=== PATIENT | female | born 1970 | race Caucasian/White ===

== ENCOUNTER 2017-12-03 10:38 | Outpatient (CLI) | payer OTHER ==
[~2017-12-03] VITALS: Ht 162.6 cm; Wt 113.6 kg
--- NOTE | ~2017-12-03 | HEMODYNAMI ---
PATIENT:SHREYA DEL ANGEL MEDICAL RECORD: [id number] : 66 LOCATION:[facility] ADMISSION DATE: 12/03/17 Generatedon:12/03/201713:23 Patient name: SHREYA DEL ANGEL Patient #: [id number] SSN: : 1970 Date of study: 12/03/2017 Page: Of Hemodynamic Procedure Report Patient Data Patient Demographics Procedure consent was obtained First Name: SHREYA Gender: Female Last Name: MER : 1970 Middle Initial: ROBBIN Age: 47 year(s) Patient #: [id number] Race: Unknown Additional ID: [id number] Contact details [address]: [address] [place] [address] State: [place] City: [place] Zip code: [address] Admission Admission Data Admission Date: 12/03/2017 Admission Time: 10:38 Arrival Date: 12/03/2017 Arrival Time: 13:00 Admit Source: Other Insurance Payor: Private health insurance Weight (lbs.): 249 Weight (kg.): 112.94 Lab Results Lab Result Date: 12/03/2017 Lab Result Time: 0:00 Biochemistry Name Units Result Min Max BUN mg/dl 9 --(*---)-- 7 18 Creatinine mg/dl 0.7 --(*---)-- 0.6 1.3 CBC Name Units Result Min Max Hemoglobin g/dl 15.6 --(--*-)-- 13.5 17.5 Procedure Procedure Types Cath Procedure Diagnostic Procedure Sedation Charges [facility] w/Coronaries Procedure Description Procedure Date Procedure Date: 12/03/2017 Procedure Start Time: 13:11 Procedure End Time: 13:20 Procedure Staff Name Function Marek Walker MD Performing Physician Lauryn Boogie RT Monitor Leslie Rodríguez RT Scrub Darin Matute RN Nurse Procedure Data Cath Procedure Fluoroscopy Diagnostic fluoroscopy Total fluoroscopy Time: 2.5 time: 2.5 min min Diagnostic fluoroscopy Total fluoroscopy dose: 415 dose: 415 mGy mGy Contrast Material Contrast Material Type Amount (ml) Isovue 300 45 Entry Location Entry Primary Successful Side Size Upsize Upsize Entry Closure Vaughn ccessful Closure Location (Fr) 1 (Fr) 2 (Fr) Remarks Device Remarks Radial Right 6 Fr Mechanical artery Short Compression Estimated blood loss: 5 ml Diagnostic catheters Device Type Used For End Catheter Placement DIAGNOSTIC [place] 110cm 5 Multi-vessel Fr catheter ([id number]) Angiography DIAGNOSTIC Pigtail 5Fr LV Angiography catheter ([id number]) Procedure Complications No complications Procedure Medications Medication Administration Route Dosage 0.9% NaCl I.V. ml/hr Oxygen NC 2 l/min Heparin Flush Bag added to field 2 bags (1000units/500ml NS) Lidocaine 2% added to field 20 Radial Cocktail added to field 1 syringe (Verapomil 2mg/Nitro 400mcg/Heparin 1500units) Versed I.V. 1 mg Fentanyl I.V. 50 mcg Radial Cocktail I.A. 1 syringe (Verapomil 2mg/Nitro 400mcg/Heparin 1500units) Versed I.V. 1 mg Hemodynamics Rest HGB: 15.6 (g/dl) Heart Rate: 72 (bpm) Pressure Samples Time Site Value (mmHg) Purpose Heart Use Rate(bpm) 13:17 LV 121/15,19 Snapshot 66 Gradients Valve Time Site Site Mean SEP/DFP Peak To Heart Use 1 2 (mmHg) (sec/min) Peak Rate (mmHg) (bpm) Aortic 13:18 LV AO 74 Snapshots Pre Cath Intra NCS Post Cath Vital Signs Time Heart Resp SPO2 etCO2 NIBP Rhythm Pain Sedation Rate (ipm) (%) (mmHg) (mmHg) Status Level (bpm) 12:58:39 83 33 97 28.6 116/78(99) NSR 0 (11) 10(A) , No pain 13:02:59 119 34 97 29.4 110/71(91) NSR 0 (11) 10(A) , No pain 13:07:15 74 27 97 19.6 105/72(90) NSR 0 (11) 10(A) , No pain 13:11:31 74 27 96 15.8 104/68(90) NSR 0 (11) 10(A) , No pain 13:15:47 79 28 92 27.9 100/68(81) NSR 0 (11) 10(A) , No pain 13:20:03 76 26 94 24.8 106/64(82) NSR 0 (11) 10(A) , No pain Medications Time Medication Route Dose Verified Delivered Reason Notes Effectiveness by by 13:02:17 0.9% NaCl I.V. ml/hr Darin Darin Per Juju Matute physician RN RN 13:02:28 Oxygen NC 2 l/min Darin Darin Per Juju Matute physician RN RN 13:02:40 Heparin Flush added 2 bags Darin Darin used for Bag to Lorigan Juju procedure (1000units/500ml field RN RN NS) 13:02:52 Lidocaine 2% added 20ml Darin Darin for local to vial Lorigan Korinigan anesthetic field RN RN 13:03:04 Radial Cocktail added 1 Darin Darin used for (Verapomil to syringe Lorigan Lorigan procedure 2mg/Nitro field RN RN 400mcg/Heparin 1500units) 13:11:12 Versed I.V. 1 mg Darin Darin for sedation Juju Matute RN RN 13:11:20 Fentanyl I.V. 50 mcg Darin Darin for sedation Juju Matute RN RN 13:13:12 Radial Cocktail I.A. 1 Darin Marek for (Verapomil syringe Lorigan Denise vasodilation 2mg/Nitro FATOU GUILLAUME 400mcg/Heparin 1500units) 13:16:46 Versed I.V. 1 mg Darin Darin for sedation Juju Matute RN pizza cook Log Time Note 12:02:55 Patient Weight : 249 lbs 12:07:31 Lab Result : Hemoglobin 15.6 g/dl 12:07:31 Lab Result : Creatinine 0.7 mg/dl 12:07:31 Lab Result : BUN 9 mg/dl 12:42:38 Leslie URBINA(R) sent for patient. Start room use. 12:42:39 Time tracking: Regular hours 12:42:43 Plan of Care:Hemodynamics will remain stable., Cardiac rhythm will remain stable., Comfort level will be maintained., Respiratory function will remain adequate., Patient/ family verbilizes understanding of procedure., Procedure tolerated without complication., Recovers from procedure without complications.. 12:44:09 Admit Source: Other 12:44:40 Insurance Payor : Private health insurance 12:44:45 Arrival Date: 12/03/2017 1:00:00 PM 12:57:21 Patient received from Pre/Post Procedure Room to CCL 2 Alert and oriented. Tansferred to table in Supine position. 12:57:22 Warm blankets applied, and jefferson hugger turned on for patient comfort. 12:57:23 Correct patient and procedure confirmed by team. 12:57:24 Signed procedure consent form obtained from patient. 12:57:25 ECG and BP/O2 sat monitors applied to patient. 12:57:26 Vital chart was started 12:57:28 Baseline sample Acquired. 12:57:32 Rhythm: sinus rhythm 12:57:34 Full Disclosure recording started 12:57:48 H&P Date Dictated: 11/06/2017 Within 30 days and on chart., H&P Addendum completed by physician on day of procedure. (MUST COMPLETE FOR ALL OUTPATIENTS). 12:58:19 Pre-procedure instructions explained to patient. 12:58:19 Pre-op teaching completed and patient verbalized understanding. 12:58:21 Family in waiting room. 12:58:23 Patient NPO since Midnight. 12:58:25 Is the patient allergic to Iodine/contrast media? No. 12:58:26 Was the patient premedicated? No 12:58:27 Is patient on blood thinner?No 12:58:28 Patient diabetic? No. 12:58:31 Previous problem with sedation/anesthesia? No ? 12:58:32 Snore? Yes 12:58:33 Sleep apnea? No 12:58:34 Deviated septum? No 12:58:35 Opens mouth fully? Yes 12:58:36 Sticks out tongue? Yes 12:58:38 Airway obstruction? No ? 12:58:43 Dentures? Yes out 12:58:47 Pre procedure: right dorsailis pedis pulse 1+ Palpable, but thready & weak; easily obliterated 12:58:50 Pre procedure: left dorsailis pedis pulse 1+ Palpable, but thready & weak; easily obliterated 12:58:52 Patient pain scale 0/10 ?. 12:58:57 IV patent on arrival in left forearm with 0.9% NaCl at O. 13:00:10 Lab results completed and on chart. 13:00:14 Right Radial & Right Groin area was prepped with chlora-prep and draped in sterile fashion 13:00:14 Alarms reviewed by R. N. 13:00:15 Sharps counted by scrub and verified by R.N. 13:02:17 0.9% NaCl ml/hr I.V. was administered by Darin Matute RN; Per physician; 13:02:28 Oxygen 2 l/min NC was administered by Darin Matute RN; Per physician; 13:02:40 Heparin Flush Bag (1000units/500ml NS) 2 bags added to field was administered by Darin Matute RN; used for procedure; 13:02:52 Lidocaine 2% 20ml vial added to field was administered by Darin Matute RN; for local anesthetic; 13:03:04 Radial Cocktail (Verapomil 2mg/Nitro 400mcg/Heparin 1500units) 1 syringe added to field was administered by Darin Matute RN; used for procedure; 13:04:37 Physician arrived 13:04:38 --------ALL STOP TIME OUT------ 13:04:38 Final Timeout: patient, procedure, and site verified with staff and physician. All members of the team are in agreement. 13:04:40 Right Radial & Right Groin site verified by team. 13:04:42 Physical assessment completed. ASA score P 2 - A patient with mild systemic disease as per Marek Walker MD. 13:04:47 Sedation plan: IV Moderate Sedation Medication:Versed, Fentanyl 13:04:51 Use device set Radial Dx or PCI 13:04:52 ACIST Syringe (91518) opened to sterile field. 13:04:52 Medline Cath Pack ([id number]) opened to sterile field. 13:04:53 Bag Decanter (2002S) opened to sterile field. 13:04:53 SHEATH 6FR Slender ([id number]) opened to sterile field. 13:04:54 DIAGNOSTIC WIRE .035 260cm J wire (844762) opened to sterile field. 13:04:54 ACIST Hand Control (67733) opened to sterile field. 13:04:55 ACIST Manifold (12144) opened to sterile field. 13:04:56 Tegaderm 4 x 4 (1626W) opened to sterile field. 13:04:58 MBrace Wrist Support ([id number]) opened to sterile field. 13:10:53 Procedure started. 13:10:54 Zero performed for pressure channel P1 13:11:12 Versed 1 mg I.V. was administered by Darin Matute RN; for sedation; 13:11:17 Local anesthetic to right radial artery with Lidocaine 2% by Marek Walker MD.INITIAL ACCESS ONLY 13:11:20 Fentanyl 50 mcg I.V. was administered by Darin Matute RN; for sedation; 13:11:32 A 6 Fr Short sheath was inserted into the Right Radial artery 13:13:09 A DIAGNOSTIC [place] 110cm 5 Fr catheter (905413) was advanced over the wire and used for Multi-vessel Angiography. 13:13:12 Radial Cocktail (Verapomil 2mg/Nitro 400mcg/Heparin 1500units) 1 syringe I.A. was administered by Marek Walker MD; for vasodilation; 13:15:42 LCA angiography performed. 13:15:45 Injector settings: Ml/sec: 3, Volume: 6, 13:16:46 Versed 1 mg I.V. was administered by Darin Matute RN; for sedation; 13:16:46 RCA angiography performed. 13:16:48 Injector settings: Ml/sec: 3, Volume: 6, 13:16:50 Catheter removed. 13:17:03 A DIAGNOSTIC Pigtail 5Fr catheter ([id number]) was advanced over the wire and used for LV Angiography. 13:17:50 LV hemodynamics recorded. 13:17:51 LV gram done using WIGGINS 13:17:53 Injector settings: Ml/sec: 5, Volume: 15, 13:18:20 EF : 60 % 13:18:22 Catheter removed. 13:18:40 TR BAND Large ([id number]) opened to sterile field. 13:18:55 Sheath removed intact; hemostasis achieved with Mechanical Compression to the Right Radial artery. 13:18:57 Procedure ended.(Physican Out) 13:19:05 Fluoroscopy time 02.50 minutes. 13:19:09 Fluoroscopy dose: 415 mGy 13:19:09 Flurop Dose total: 415 13:19:15 Contrast amount:Isovue 300 45ml. 13:19:16 Sharps counted by scrub and verified by R.N. 13:19:54 Insertion/operative site no bleeding no hematoma. 13:20:01 Post right radial artery:stable 13:20:02 Post Procedure Pulses reassessed and unchanged 13:20:05 Post procedure rhythm: unchanged. 13:20:07 Estimated blood loss: 5 ml 13:20:09 Post procedure instruction explained to patient.Patient verbalizes understanding. 13:20:09 Patient needs reinforcement of post procedure teaching. 13:20:24 Procedure type changed to Cath procedure, Diagnostic procedure, Sedation Charges, LHC, LHC w/Coronaries 13:20:34 Procedure and supply charges have been captured, reviewed, submitted and are correct. 13:20:40 Procedure Complication : No complications 13:20:42 Vital chart was stopped 13:20:42 See physician's report for complete and final results. 13:20:48 Report given to Pre/Post Procedure Room. 13:20:51 Patient transfered to Pre/Post Procedure Room with Stretcher. 13:20:54 TR band inflated with 10cc of air. 13:20:58 Procedure ended. 13:20:58 Full Disclosure recording stopped 13:21:02 End room use (Document Last) Device Usage Item Name Manufacture Quantity Catalog Hospital Part Current Minima l Lot# / Number Charge Number Stock Stock Serial# Code ACIST Acist 1 19635 264794 333794 714653 20 Syringe Medical (20822) Systems Inc Medline Cath Cardinal 1 [id number] 888352 19074 262916 5 Pack Health ([id number]) Bag Decanter Microtek 1 2001S 953423 77094 725407 5 (2001S) Medical Inc. SHEATH 6FR Terumo 1 [id number] 236195 463180 464422 40 Slender ([id number]) DIAGNOSTIC [facility] [place] 1 161027 310093 135040 478201 30 WIRE .035 260cm J wire (979561) ACIST Hand Acist 1 12086 732633 782871 298457 5 Control Medical (09528) Systems Inc ACIST Acist 1 27278 394283 927658 679037 5 Manifold Medical (73588) Systems Inc Tegaderm 4 x 3M 1 1626W 663676 279932 480489 5 4 (1626W) MBrace Wrist Advanced 1 140-0250-00 122061 37909 838754 5 Support Vascular ([id number]) Dynamics DIAGNOSTIC Terumo 1 40-5013 554247 776494 835077 5 [place] 110cm 5 Fr catheter (532203) DIAGNOSTIC Cardinal 1 [id number] 680764 352756 181324 5 Pigtail 5Fr Health catheter (118983Z) TR BAND Terumo 1 HPQ08-VWG 013566 194442 760800 40 Large ([id number]) Signature Audit [place] Stage Time Signature Unsigned Intra-Procedure 12/03/2017 Lauryn Boogie 1:23:33 PM RT(R) Signatures Monitor : Lauryn Boogie RT Signature : Date : Time : [place] [address] [place] [address]
--- NOTE | ~2017-12-03 | OP ---
PATIENT NAME: SHREYA DEL ANGEL MEDICAL RECORD: [id number] :66 LOCATION:D[facility] ADMISSION DATE: SURGEON: MUKESH JUSTICE MD DATE OF OPERATION: 12/03/2017 PROCEDURE: Left heart cath, selective coronary angiography, right radial approach. CATHETERS: A 5-Salvadorean radial catheter, radial sheath, [place] catheter. Procedure was well tolerated. The patient returned to the [facility]. Sheath was removed. TR band was placed. FINDINGS: Left ventriculography 30-degree WIGGINS view: Normal wall motion, normal systolic function. CORONARY ANATOMY. LEFT MAIN: Left main is free of disease. LAD: Free of disease in the diagonal system. CIRCUMFLEX: Medium sized circumflex system, free of disease. RIGHT CORONARY ARTERY: A large, dominant right, free of disease. IMPRESSION: Normal systolic function. Normal coronary anatomy. TRANSINT:[id number] Voice Confirmation ID: [id number] DOCUMENT ID: [id number] MUKESH JUSTICE MD at 1030 CC: [id number] DICTATION DATE: 12/03/17 1328 MARINE DESIGN ENGINEER: 12/03/17 1351 DEP CLI 12/03/17 [place] [id number] [place] [id number]
[2017-12-03] MEDS ORDERED: NEURONTIN800 MG PO (10:50)
[2017-12-03] MEDS ORDERED: ROBAXIN500 MG PO (10:51)
[2017-12-03] MEDS ORDERED: ALBUTEROL2.5 MG/3 M INH (10:52)
[2017-12-03] MEDS ORDERED: SYMBICORT 16010.2 GM INH (10:53)
[2017-12-03] MEDS ORDERED: ZYRTEC10 MG PO (10:53)
[2017-12-03] MEDS ORDERED: PROAIR HFA8.5 GM INH (10:53)
[2017-12-03] MEDS ORDERED: NEXIUM40 MG PO (10:53)
[2017-12-03] MEDS ORDERED: ZOCOR40 MG PO (10:54)
[2017-12-03] MEDS ORDERED: FENOFIBRATE (10:54)
[2017-12-03] MEDS ORDERED: LIDODERM 5 %1 PATCH TRANSDERM (10:54)
[2017-12-03] MEDS ORDERED: ZEBETA10 MG PO (10:55)
[2017-12-03] MEDS ORDERED: TESSALON PERLE100 MG PO (10:56)
[2017-12-03] MEDS ORDERED: AMBIEN10 MG PO (10:56)
[2017-12-03] MEDS ORDERED: KLOR-CON M2020 MEQ PO (10:58)
[2017-12-03 11:11] VITALS: BP 124/71; Ht 162.6 cm; Wt 113.6 kg
[2017-12-03 11:27] LABS: BASOPHILS 0.3 % (0-2); EOSINOPHILS 0.6 % (0-7); HEMATOCRIT 46.7 % (36.0-48.0); HEMOGLOBIN 15.6 g/dL (12-16); LYMPHOCYTES 48.1 % (15-50); MCHC 33.4 g/dL (31.0-37.0); MCV 95.7 fL (80.0-100.0); MONOCYTES 7.4 % (2-11); NEUTROPHILS 42.6 % (40-80); PLATELET COUNT 282 10x3/uL (130-400); RBC 4.88 10x6/uL (4.00-5.40); RDW 12.5 % (11.5-14.5); WBC 7.7 10x3/uL (4.8-10.8)
[2017-12-03 11:39] LABS: CALC OSMOLALITY 278 mosm/kg (275-300); CALCIUM 9.3 mg/dL (8.5-10.1); CARBON DIOXIDE 29.4 mmol/L (21.0-32.0); CHLORIDE - SERUM 102 mmol/L (98-107); CREATININE - SERUM 0.7 mg/dL (0.6-1.3); GLUCOSE 122 mg/dL (74-106); POTASSIUM - SERUM 4.3 mmol/L (3.5-5.1); SODIUM 140 mmol/L (136-145); UREA NITROGEN 9 mg/dL (7-18); eGFR NON AFRICAN AMERICAN > 90 mL/min (90-120)
== END 2017-12-03 16:06 | disposition home or self-care (01) ==
LOC: D.CATH 10:38
PROVIDERS: Internal Medicine Interventional Cardiology
DX: I20.9 Angina pectoris, unspecified (principal); E78.5 Hyperlipidemia, unspecified; I10 Essential (primary) hypertension; R94.31 Abnormal electrocardiogram [ECG] [EKG]; Z01.812 Encounter for preprocedural laboratory examination